=== PATIENT | female | born 1985 | race Two or more races ===

== ENCOUNTER → 2023-11-11 | Outpatient (CLI) | payer OTHER | LOC: M RAD 14:24 | PROVIDERS: ATTEND Physician Assistant | DX: D25.9 Leiomyoma of uterus, unspecified (principal); N83.201 Unspecified ovarian cyst, right side ==

== ENCOUNTER → 2023-11-13 | Outpatient (REF) | payer OTHER | LOC: M SFHCDERM 16:36 | PROVIDERS: ATTEND Nurse Practitioner Family | DX: L82.1 Other seborrheic keratosis (principal) ==